=== PATIENT | male | born 1950 | race Caucasian/White ===

== ENCOUNTER 2016-08-13 08:45 | Emergency (ER) | payer OTHER ==
[~2016-08-13] VITALS: Ht 167.6 cm; Wt 111.1 kg
[~2016-08-13 08:45] MED LIST: ASPI81TA27 PO; BACL10TA PO; GLIP-116 PO; METO25TA5 PO; OXYB15TA12 PO; SIMV10TA84 PO
[2016-08-13 09:38] VITALS: BP 126/72
== END 2016-08-13 09:43 | disposition home or self-care (01) ==
LOC: ER 08:45
DX: B02.9 Zoster without complications (principal); I10 Essential (primary) hypertension; E11.9 Type 2 diabetes mellitus without complications; E78.5 Hyperlipidemia, unspecified

== ENCOUNTER 2019-11-16 19:17 | Emergency (ER) | payer OTHER ==
[~2019-11-16] VITALS: Ht 172.7 cm; Wt 113.4 kg
[~2019-11-16 19:17] MED LIST changes: +ASPI-543 PO; -ASPI81TA27 PO; -GLIP-116 PO; +GLIP10TA9 PO
[2019-11-16 20:00] LABS: Basophils # (auto) 0.1 10 ^3/uL (0-0.2); Eosinophils # (auto) 0.4 10 ^3/uL (0-0.8); Eosinophils % (auto) 3.6 % (0.0-7.0); Hematocrit 37.7 % (41.0-53.0); Hemoglobin 12.1 g/dL (13.5-17.5); Lymphocytes # (auto) 1.5 10 ^3/uL (0.4-5.4); Lymphocytes % (auto) 14.7 % (10.0-50.0); Mean Corpuscular Hemoglobin 30.3 pg (28.0-32.0); Mean Corpuscular Hgb Conc. 32.1 g/dL (32.0-36.0); Mean Corpuscular Volume 94.6 fL (80.0-100.0); Monocytes # (auto) 0.8 10 ^3/uL (0-1.3); Monocytes % (auto) 7.3 % (0.0-12.0); Neutrophils # (auto) 7.7 10 ^3/uL (1.6-8.6); Neutrophils % (auto) 73.4 % (37.0-80.0); Platelet Count (auto) 288 10^3/uL (140-450); Red Blood Cells 3.99 10^6/uL (4.5-5.90); Red Cell Distribution Width 14.7 % (11.8-14.3); White Blood Cell 10.4 10^3/uL (4.4-10.8)
[2019-11-16 20:21] LABS: Albumin 2.6 g/dL (3.4-5.0); BUN/Creatinine Ratio 15.9; Calcium 8.6 mg/dL (8.5-10.1); Potassium 4.5 mmol/L (3.5-5.1)
[2019-11-16 20:24] LABS: Bilirubin, Total 0.2 mg/dL (0.2-1.0); Total Protein 7.6 g/dL (6.4-8.2)
[2019-11-17 01:40] VITALS: BP 106/60
== END 2019-11-17 01:40 | disposition home or self-care (01) ==
LOC: ER 19:17 → EDBD 19:17 → ER 11-17 01:40
DX: L89.311 Pressure ulcer of right buttock, stage 1 (principal); E11.9 Type 2 diabetes mellitus without complications; G82.20 Paraplegia, unspecified; I10 Essential (primary) hypertension; E78.5 Hyperlipidemia, unspecified; Z79.899 Other long term (current) drug therapy
CPT/HCPCS: 36415; 72192; 80053; 83605; 85025; 87040